=== PATIENT | male | born 1980 | race Caucasian/White ===

== ENCOUNTER 2018-11-11 04:01 | Emergency (ER) | payer BC, OTHER ==
[2018-11-11] MEDS: HYDROCODONE/APAP (10/325) TAB PO (04:57)
== END 2018-11-11 05:43 | disposition home or self-care (01) ==
LOC: FTE 04:01
DX: K08.89 Other specified disorders of teeth and supporting structures (principal); K04.7 Periapical abscess without sinus; F17.210 Nicotine dependence, cigarettes, uncomplicated
CPT/HCPCS: 99283